=== PATIENT | male | born 1945 | race Caucasian/White ===

== ENCOUNTER → 2016-09-11 | Outpatient (CLI) | payer OTHER, MEDICARE | LOC: FIMAGING 13:46 | PROVIDERS: ATTEND Physician Assistant | DX: M48.06 Spinal stenosis, lumbar region (principal); M51.36 Other intervertebral disc degeneration, lumbar region; M51.86 Other intervertebral disc disorders, lumbar region; M51.87 Other intervertebral disc disorders, lumbosacral region; M46.96 Unspecified inflammatory spondylopathy, lumbar region ==

== ENCOUNTER 2016-11-20 06:37 | Inpatient (IN) | payer OTHER, MEDICARE ==
[~2016-11-20 06:37] MED LIST: CHLORHEXIDINE GLUC HIBICLENS 118 ML BTL TP ONE; LIDOCAINE 1% 2 ML INJ ONE; ceFAZolin 2 GM/DEXTROSE 100 ML IV ONE
[2016-11-20] MEDS ORDERED: LIDOCAINE 1% 5 ML SDV ID PRN (06:41)
[2016-11-20] MEDS ORDERED: LR 1,000 ML IV ONE (06:41)
[2016-11-20] MEDS ORDERED: THROMBIN (BOVINE) 5,000 UNIT VIAL TP ONE (07:50)
[2016-11-20] MEDS ORDERED: BUPIVACAINE/EPI 0.25% 30 ML SDV ONE (07:50)
[2016-11-20] MEDS ORDERED: BACITRACIN 50,000 UNITS/10 ML SYR IRR ONE ×2 (07:51→10:54)
[2016-11-20] MEDS ORDERED: POLYETHYLENE GLYCOL 3350 17 GM PKT PO PRN (07:53)
[2016-11-20] MEDS ORDERED: NALOXONE HCL 0.4 MG/ML INJ IVP PRN (07:53)
[2016-11-20] MEDS ORDERED: DIAZEPAM 10 MG/2 ML SYR IVP PRN (07:53)
[2016-11-20] MEDS ORDERED: diphenhydrAMINE 25 MG CAP PO PRN (07:53)
[2016-11-20] MEDS ORDERED: DIAZEPAM 5 MG TAB PO PRN (07:53)
[2016-11-20] MEDS ORDERED: BISACODYL 10 MG SUPP PR PRN (07:53)
[2016-11-20] MEDS ORDERED: LACTULOSE 20 GM/30 ML UDCUP PO PRN (07:53)
[2016-11-20] MEDS ORDERED: MAGNESIUM HYDROXIDE 30 ML UDCUP PO PRN (07:53)
[2016-11-20] MEDS ORDERED: ONDANSETRON DISINTEGRATING 4 MG TAB PO PRN (07:53)
[2016-11-20] MEDS ORDERED: HYDROmorphONE/DILAUDID 6 MG/30 ML PCA IV PRN (07:53)
[2016-11-20] MEDS ORDERED: ONDANSETRON 4 MG/2 ML VIAL IVP PRN (07:53)
[2016-11-20] MEDS ORDERED: PROPOFOL/EMULSION 500 MG/50 ML BOTTLE IV ONE ×7 (07:59→13:46)
[2016-11-20] MEDS ORDERED: REMIFENTANIL HCL 1 MG VIAL ONE ×7 (07:59→12:41)
[2016-11-20] MEDS ORDERED: DEXAMETHASONE 4 MG/ML VIAL ONE ×2 (08:02→08:03)
[2016-11-20] MEDS ORDERED: SUCCINYLCHOLINE CHLORIDE*ANESTHESIA ONLY*200 MG/10 ML SYR IVP ONE (08:02)
[2016-11-20] MEDS ORDERED: ONDANSETRON 4 MG/2 ML VIAL ONE (08:03)
[2016-11-20] MEDS ORDERED: RANITIDINE 50 MG/2 ML VIAL ONE (08:03)
[2016-11-20] MEDS ORDERED: MIDAZOLAM 2 MG/2 ML VIAL ONE (08:04)
[2016-11-20] MEDS ORDERED: HYDROmorphONE/DILAUDID 2 MG/ML INJ ONE (08:08)
[2016-11-20] MEDS ORDERED: epHEDrine SULFATE 10 MG/ML SYR ONE (08:26)
[2016-11-20] MEDS ORDERED: FAMOTIDINE 20 MG/NACL 50 ML IV SCH (09:00)
[2016-11-20] MEDS ORDERED: ceFAZolin 1 GM VIAL ONE (11:53)
[2016-11-20] MEDS ORDERED: fentaNYL 100 MCG/2 ML INJ ONE (14:55)
[2016-11-20] MEDS ORDERED: DIAZEPAM 10 MG/2 ML SYR ONE (15:22)
[2016-11-20] MEDS: LISINOPRIL 20 MG TAB PO SCH (15:40)
[2016-11-20] MEDS: morphINE SR 15 MG TAB PO SCH ×2 (15:41→21:29)
[2016-11-20] MEDS: SENNOSIDES/DOCUSATE SODIUM TAB PO SCH ×2 (15:43→21:30)
[2016-11-20] MEDS ORDERED: HYDROmorphONE/DILAUDID 1 MG/ML SYR ONE (16:06)
[2016-11-20] MEDS: HYDROmorphONE/DILAUDID 1 MG/ML SYR IVP PRN (17:16)
--- NOTE | 2016-11-20 17:17 | GOP ---
[f rep st] OPERATIVE REPORT DATE OF OPERATION: 11/20/2016 SURGEON: Barry Mathis MD SUBSCRIPTION CREW LEADER: Rajat Leblanc PA-C. PREOPERATIVE DIAGNOSIS: 1. Adjacent segment disease. 2. Epidural lipomatosis. 3. Severe spinal stenosis L2-3 and L3-4. 4. Prior lumbar fusion L4-5, L5-S1. 5. Right lumbosacral radiculopathy. POSTOPERATIVE DIAGNOSIS: 1. Adjacent segment disease. 2. Epidural lipomatosis. 3. Severe spinal stenosis L2-3 and L3-4. 4. Prior lumbar fusion L4-5, L5-S1. 5. Right lumbosacral radiculopathy. 6. 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 PROCEDURE PERFORMED: 1. Removal of posterior segmental instrumentation, L4, L5, S1 with exploration of spinal fusion at L5-S1, posterolateral and intervertebral arthrodesis at L2-3 and L3-4 ([id number], [id number]). 2. Posterior lateral arthrodesis only L4-5, L5-S1 ([id number] x2). 3. Same incision bone graft harvest. 4. Microscope. 5. Posterior segmental instrumentation, L2, L3, L4, L5, S1, and S2. 6. Spinal stereotaxy. 7. Placement of biomechanical intervertebral devices at L2-3, L3-4. FINDINGS: ESTIMATED BLOOD LOSS: 400 cc. INDICATIONS: The patient is a mature gentleman who had a prior history of L4-5, L5-S1 TLIF done on December 04, 2015 with good clinical result and significant resolution of his right lumbosacral radiculo genie. He developed some recurrent pain in the right leg, and some of it was consistent with a high er root involvement. MRI demonstrated progression of spinal stenosis at L2-3, 3-4. We knew indeed that he had previous stenosis at those 2 levels, but it had worsened over the interval, and it was m y feeling they were contributing to his new right leg pain. I suggested decompression and fusion at those levels. I also was concerned about the possibility of a pseudoarthrosis or problem at the L5 -S1, particularly in the right L5-S1 foramen, and I suggested exploration of this level. The risk o f continued symptoms, nerve injury, spinal fluid leak, screw and hardware malposition, malfunction, recurrent pseudoarthrosis, and recurrence adjacent segment disease was discussed. He understood the se risks. He wanted to proceed. DESCRIPTION OF PROCEDURE: Patient was taken to the operating room, placed in supine position. Gene ral anesthesia was begun. He was flipped prone on the Matt table. Care was taken to pad all poi nts of contact. He was sterilely prepped 4 times by the surgeon and then draped. Localizing x-rays were taken. We opened the previous midline incision, extended it rostrally and inferiorly somewhat with the scalpel blade. The plasma blade was used for dissection. No Bovie cautery was used. The subcutaneous tissue was dissected, and we performed a subperiosteal dissection down the inferior la rajani of L1, the laminae of L2, L3. The rostral lamina of L4 was exposed. The prior hardware at L4- 5, S1 was exposed. Care was taken to avoid the midline laminectomy defects, and we exposed all the hardware at L4-5 S1. We removed the cap screws and the crosslink. There was no problem with the cr osslink itself. It was removed. We removed both rods, and then began removing the screws. The L4 and L5 screws were well seated within bone. The S1 screws had experienced some osteolysis. They we re easily removed, but I was concerned about a pseudoarthrosis after appreciating this. We then dri lled posterolaterally at L4-5, and there was solid cortical bone bridging from L4 to L5. At L5-S1, there was a small gap in the cortical bone bridging between these 2 right below the L5 pedicle. Thi s was consistent with a pseudoarthrosis, and indeed, when one pulled on the sacrum, one could see tr donell amount of motion in that false joint. We, therefore, elected to increase our exposure, and we i ncreased the exposure at the sacrum for placement of S2 screws as necessary. We had extra-large ped icle screws for replacement of the S1 screws. We attached the Stealth reference frame to the L3 spi nous process, performed an O-arm spin, and inspected the O-arm spin. Indeed, our clinical suspicion was confirmed by this, there was solid bony union at L4-5, but there was pseudoarthrosis at L5-S1. Osteolysis was present around the prior screws. You could tell that the caliber of these pedicle t rajectories was larger than L4 and L5 screws. Using frameless Stealth stereotaxy, we placed pedicle screws bilaterally at S2. We actually chose to place new pedicle trajectories at S1. S1 pedicle w as generous, and there was a lot of cortical bone. We used a match stick to begin those holes on winnie th sides and used a pedicle finder to plot a new trajectory through the S1 pedicle. Both sides we w ent just rostral to the previous trajectory and somewhat medial. We chose 6.5 mm screws, and the sc rews were angled towards the endplate of the sacrum but not completely into the L5-S1 disk itself. We placed the same screws at L4 and L5. There was good bony purchase, and we placed bilateral screw s at L2 and L3. We performed an O-arm spin, and all the screws at L2, L3, L4, L5, S1, and S2 screws were in excellent position. We stimulated all the screws, and they all stimulated at acceptable le vels, but we got a 9 from the right S2 screw. We again inspected it. There was no evidence that it had breached the S2 pedicle. We backed it out, and because of this low stem number, this screw was removed from the patient, and we chose a 6.5 x 30 mm screw which was somewhat shorter. I thought th ere was a possibility the tip of the screw could be stimulating S1. It was removed, and we re-stimm ed, and this time it stimmed even lower at 7. We, therefore, removed the screw altogether. I did n ot think it was necessary given the excellent bony purchase at S1. These S1 screws were exceptional ly well seated within cortical bone, and they actually were some of the most reassuring screws that we put in I elected to forego the right S2 screw and left the left S2 screw in place. We cut a moon for the left hand side and used a prebent moon on the right. Both of them were titanium rods. We pu t the rods down over the tulips and bent the rods to fit nicely into the tulips. We then captured t he tulips with set screws. We distracted between L5 and S1 and got some elevation of the foramen an d the disk at that level. We also distracted L2-3, 3-4 and had nice elevation particularly at L3-4 with a terrible degenerative disk level. In the past on his previous surgery, we had appreciated a conjoined root on the right at L5-S1, and we did not radically re-exposed the right L5-S1 foramen, b ut we had opened with distraction. We did not want to consider a TLIF there because of the right-si ded conjoined root. I thought it would lead to nerve injury. We decorticated very thoroughly all t he posterolateral bone L2, L3, L4, L5, and the sacrum, and particular care was taken at L5 to expose the transverse process and decorticate the pedicle and mass AP of the sacrum. We had really a larg e bone to bone surface area for arthrodesis at that level. We locked down all the cap screws accord ing to company specification. We then turned our attention to cleaning up the bone. We removed all the soft tissue and decorticated the bone at L2-3, 3-4. I then harvested the L3 spinous process, t he rostral L4 spinous process, and the inferior L2 spinous process. We had a large amount of bony a utograft. We then drilled bilateral laminectomies at L2-3, L3-4 and harvested all this bone for aut ologous grafting purposes. We introduced the scope, and under the scope, we completely decompressed the central thecal sac at L3-4, L2-3. There was a huge amount of epidural fat present at both leve ls extending down in the neural foramen and lateral recesses, and we resected this fat. We had a ve ry nice decompression of the central spinal canal and bilateral recesses at L2-3, L3-4. On the righ t at L2-3, 3-4, we removed the facet joint complexes for access to the intervertebral space. At L2- 3 on the patient's right-hand side, there was a herniated disc underneath the L3 root at the L2-3 le mendel. This was removed. We then completely removed the L2-3 disk in its entirety and roughened the subchondral bone to create arthrodesis at that level. We did likewise at L3-4 from the right-sided approach. We removed the disk and the cartilaginous endplates. We roughened the subchondral bone t o create arthrodesis. The exiting L2 and exiting L3 nerve roots at each of those foramen was well i dentified. These were decompressed in the neural foramen. The neural foramen was also very stenoti c for those exiting nerves, and we got a great decompression for those as well. We then placed bone morphogenic protein into the disk space at L2-3 and L3-4 putting a total of 1 mg in at each level. We sized for placement of our intervertebral device. We chose a 7 x 28 mm devices at each level. We placed a large amount of bony autograft in both disk spaces and inserted the devices under fluoro scopic guidance, checked their position, and expanded them according to company specification. A fi nal x-ray was taken. They were in excellent position. We again re-decorticated all the posterior l ateral bone at L2-3, L3-4 L4-5, L5-S1 for our posterolateral arthrodesis from L2 all the way to S1. We placed bony autograft posterolaterally bilaterally. And a large amount of BMP was placed bilater ally at L5-S1 and bone autograft. We used 1/2 of a BMP sponge on each side at L5-S1 both medial and lateral to the screws. We had carefully inspected and decorticated bone on either side of the smal l pseudoarthrosis fracture site. We placed bone autograft completely over this area. We then place d bony autograft all the way up to L2. We used much less BMP at these levels where the laminectomie s were performed. We used our typical 1/4 of 1 sponge at those levels, and it was all placed sequencing machine operator olaterally away from the nerve roots. A subfascial drain was then placed. No cross-link was utiliz ed. The patient did not want to crosslink. We tunneled the subfascial drain and then closed the in cision using multiple layers, and then Steri-Strips were applied to the skin. The patient was rever sed from anesthesia, extubated, and transferred to recovery room in stable condition. There were no complications. SECONDARY SUBSCRIPTION CREW LEADER: Yoselyn Osborn NP. COMPLICATIONS: None. INSTRUMENTATION USED: [employer] pedicle screw instrumentation. We used a 5.5 mm system with a 5.5 mm titanium moon. We used 6 mg of bone morphogenic protein. /[id number]/MODL
[2016-11-20] MEDS: NS W/ 20 KCl/L 1,000 ML IV SCH (17:23)
[2016-11-20] MEDS: METHOCARBAMOL 750 MG TAB PO PRN (19:10)
[2016-11-20] MEDS: HYDROmorphONE/DILAUDID 2 MG TAB PO PRN ×2 (19:11→23:52)
--- NOTE | 2016-11-20 19:13 | SOAPPROG ---
SOAP Progress Note Assessment/Plan: Post Op Visit: S: Awake and alert. Pt with expected lower back pain. O: AFVSS/PERRLA/EOMI no droop CN 2-12 grossly intact +lt touch 5/5 BUE/BLE = CDI LULU in place A/P: 71 yo male that is s/p TLIF L2/3, L3/4 with L5/S1 reexploration and PSF L2- S1 -orders in place -pt seen by Dr Mathis as we -call with any questions or concerns -pt understands and agrees 11/20/16 19:10 Objective: Vital Signs Temp Pulse Resp BP Pulse Ox 36.7 C 101 H 16 119/84 H 96 11/20/16 18:43 11/20/16 18:43 11/20/16 18:43 11/20/16 18:43 11/20/16 18:43 11/19/16 11/20/16 11/21/16 05:59 05:59 05:59 Intake Total 2820 Output Total 800 Balance 2019 ICD10 Worksheet Patient Problems: Problems Problem Status Onset Arthrodesis status Acute Lumbar radicular pain Acute Lumbar stenosis Acute - ICD10 Problem Qualifiers (1) Lumbar stenosis (2) Lumbar radicular pain (3) Arthrodesis status
[2016-11-20] MEDS: FAMOTIDINE 20 MG TAB PO SCH (21:27)
[2016-11-20] MEDS: ZOLPIDEM TARTRATE 5 MG TAB PO SCH (21:30)
[2016-11-21] MEDS: METHOCARBAMOL 750 MG TAB PO PRN ×3 (04:34→19:36)
[2016-11-21] MEDS: HYDROmorphONE/DILAUDID 2 MG TAB PO PRN ×2 (04:34→12:57)
[2016-11-21 05:43] LABS: ANION GAP 7 mEq/L (8-16); CALCIUM 8.2 mg/dL (8.5-10.4); CARBON DIOXIDE 22 mEq/l (22-31); CHLORIDE 106 mEq/L (97-110); GLOMERULAR FILTRATION RATE > 60; GLUCOSE 126 mg/dL (70-100); POTASSIUM 4.6 mEq/L (3.5-5.2); SODIUM 135 mEq/L (134-144)
[2016-11-21 05:45] LABS: % IMMATURE GRANULYOCYTES 0.6 % (0.0-1.1); ABSOLUTE IMMATURE GRANULOCYTES 0.05 10^3/uL (0.00-0.10); ADD DIFF? NO; ADD MORPH? NO; ADD SCAN? NO; ATYPICAL LYMPHOCYTE FLAG 0 (0-99); FRAGMENT RBC FLAG 0 (0-99); HEMOGLOBIN 11.3 g/dL (13.7-17.5); LEFT SHIFT FLG 0 (0-99); LIPEMIA HEMOLYSIS FLAG 90 (0-99); MEAN CELL HEMOGLOBIN 33.6 pg (27.9-34.1); MEAN CELL HEMOGLOBIN CONCENTR. 34.2 g/dL (32.4-36.7); MEAN CELL VOLUME 98.2 fL (81.5-99.8); MEAN PLATELET VOLUME 10.3 fL (8.7-11.7); PLATELET CLUMPS FLAG 10 (0-99); PLATELET COUNT 129 10^3/uL (150-400); RED BLOOD CELL COUNT 3.36 10^6/uL (4.40-6.38)
[2016-11-21] MEDS: LISINOPRIL 20 MG TAB PO SCH (09:04)
--- NOTE | 2016-11-21 09:21 | NEUSURGPN ---
Date of Surgery: 11/20/16 Post Op Day: 1 Assessment/Plan: 71 yo male that is s/p TLIF L2/3, L3/4 with L5/S1 reexploration and PSF L2-S1 Continue with PT/OT Continue to wear brace Post op xrays pending LULU in place TEDS/SCD's Lovenox POD#3 Call NS with any questions or concerns Subjective: Patient feel he is doing well following surgery. Pain is managed with ordered medications. Objective: Awake and alert sitting up in chair. Pt with expected lower back pain. +lt touch 5/5 BUE/BLE = CDI LULU in place Neuro Check Frequency: per routine Urinary Catheter in Place: No Catheter Insertion Date: 11/20/16 - Physician Discussed Patient with .: Del Patient Seen by : Del Neurosurgery Physical Exam - Vitals, I&O, Labs I and O 11/20/16 11/21/16 11/22/16 05:59 05:59 05:59 Intake Total 3220 Output Total 1910 Balance 1310 Weight 95.254 kg Intake: Oral (ml) 620 IV Intake (ml) 2400 IV Infused (ml) 200 NS W/ 20 KCl/L 1,000 ml @ 200 75 mls/hr IV CONT OTTO Rx #:[id number] Output: Urine (ml) 950 Catheter 950 Estimated Blood Loss (ml) 400 LULU Drain Output (ml) 560 Posterior Back Matt 560 Leigh Other: Intake Quantity No Sufficient Vital Signs Temp Pulse Resp BP Pulse Ox 36.8 C 108 H 20 87/50 L 94 11/21/16 07:17 11/21/16 07:17 11/21/16 07:17 11/21/16 09:04 11/21/16 07:17 Laboratory Results 11/21/16 05:12 11/21/16 05:12 ICD10 Worksheet Patient Problems: Problems Problem Status Onset Arthrodesis status Acute Lumbar radicular pain Acute Lumbar stenosis Acute
[2016-11-21] MEDS ORDERED: NS 500 ML IV ONE (09:43)
[2016-11-21] MEDS: NS W/ 20 KCl/L 1,000 ML IV SCH (09:43)
[2016-11-21] MEDS: FAMOTIDINE 20 MG TAB PO SCH ×2 (09:46→19:36)
[2016-11-21] MEDS: SENNOSIDES/DOCUSATE SODIUM TAB PO SCH ×2 (09:46→19:35)
[2016-11-21] MEDS: morphINE SR 15 MG TAB PO SCH ×2 (09:46→19:36)
[2016-11-21] MEDS: HYDROmorphONE/DILAUDID 1 MG/ML SYR IVP PRN (16:06)
[2016-11-21] MEDS: ZOLPIDEM TARTRATE 5 MG TAB PO SCH (21:15)
[2016-11-22] MEDS: HYDROmorphONE/DILAUDID 2 MG TAB PO PRN ×3 (01:42→17:57)
[2016-11-22] MEDS: HYDROmorphONE/DILAUDID 1 MG/ML SYR IVP PRN (06:00)
[2016-11-22] MEDS: METHOCARBAMOL 750 MG TAB PO PRN ×4 (06:01→17:57)
[2016-11-22] MEDS: morphINE SR 15 MG TAB PO SCH ×2 (08:33→20:37)
[2016-11-22] MEDS: SENNOSIDES/DOCUSATE SODIUM TAB PO SCH ×2 (08:33→20:37)
[2016-11-22] MEDS: FAMOTIDINE 20 MG TAB PO SCH ×2 (08:33→20:37)
[2016-11-22] MEDS: ACETAMINOPHEN 325 MG TAB PO PRN ×2 (08:35→17:56)
[2016-11-22] MEDS: LISINOPRIL 20 MG TAB PO SCH (08:39)
--- NOTE | 2016-11-22 09:33 | NEUSURGPN ---
Date of Surgery: 11/20/16 Post Op Day: 2 Assessment/Plan: 71 yo male that is s/p TLIF L2/3, L3/4 with L5/S1 reexploration and PSF L2-S1 Continue with PT/OT Continue to wear brace Post op xrays stable LULU discontinued TEDS/SCD's Lovenox POD#3 Possibly go home either 11/23 or 11/24 if doing well. Scripts written and RN will give to today to fill. Call NS with any questions or concerns Subjective: Patient sitting up in chair doing well. He had some left knee pain last night which he contributed to his knee replacement. Concerned about facial sores and states wound care will see him. Expected back pain present, presurgical leg pain improved as well as improvement with numbness in right great toe. Would like to go home sometime this weekend. Objective: Awake and alert sitting up in chair. Pt with expected lower back pain. Some facial breakdown from surgical positioning. +lt touch 5/5 BUE/BLE = LULU Discontinued, tip intact Dressing changed by RN, CDI Neuro Check Frequency: per routine Urinary Catheter in Place: No Catheter Insertion Date: 11/20/16 - Physician Discussed Patient with : Del Neurosurgery Physical Exam - Vitals, I&O, Labs I and O 11/21/16 11/22/16 11/23/16 05:59 05:59 05:59 Intake Total 3220 550 Output Total 1910 1455 150 Balance 1310 -905 -150 Weight 95.254 kg Intake: Oral (ml) 620 250 IV Intake (ml) 2400 IV Infused (ml) 200 300 NS W/ 20 KCl/L 1,000 ml @ 200 300 75 mls/hr IV CONT OTTO Rx #:[id number] Output: Urine (ml) 950 1130 150 Catheter 950 Urinal 1130 150 Estimated Blood Loss (ml) 400 LULU Drain Output (ml) 560 325 Posterior Back Matt 560 325 Leigh Other: Intake Quantity No Sufficient Number of Voids Urinal 2 Vital Signs Temp Pulse Resp BP Pulse Ox 36.7 C 79 18 112/86 H 92 11/22/16 04:00 11/22/16 04:00 11/22/16 04:00 11/22/16 04:00 11/22/16 04:00 Laboratory Results 11/21/16 05:12 11/21/16 05:12 ICD10 Worksheet Patient Problems: Problems Problem Status Onset Arthrodesis status Acute Lumbar radicular pain Acute Lumbar stenosis Acute
--- NOTE | 2016-11-22 16:10 | WOCRNPDOC ---
WOCRN Advanced Assessment Note - Skin Integrity Problem, Advanced Assess Forehead Dressing Type: Open to Air Exudate Amount: None Maribel Wound Tissue: Intact Wound Edges: Epithelizing Site Odor: None Skin Integrity Problem Comment: Cleansed with sterile NS and gauze; applied skin prep. Bilateral Cheek Dressing Type: Open to Air Exudate Amount: Scant Exudate Color: Clear, Yellow Exudate Characteristic(s): Serous Integumentary Issue Intervention: Dressing Applied (Medihoney HCS and Replicare hydrocolloid) Maribel Wound Tissue: Erythema, Swollen Maribel Wound Swelling: Mild Wound Bed Color: Yellow Wound Bed Constitution: Adhered Slough (100% of bases: thick covering at right, minimal thickness at left cheek) Wound Edges: Well Defined Site Odor: None Site Measurement - Head-to-Toe Length X Width X Depth (cm): 1.5 x 2.5 x 0 ( slough) Pressure Injury Stage: Unstageable, Discharge Planner Related Pressure Injury Pressure Injury Present on Admit: No (presumed to have occurred during or after surgery.) Skin Integrity Problem Comment: Symmetrical injuries at bilateral cheeks and forehead. Open at bilateral cheeks, with slough occluding bases. Cleansed using sterile NS and gauze. Applied Cavilon skin prep to intact periwound, Medihoney to slough, and secured/protected from chafing of O2 tubing with Hydrocolloid dressings to promote autolytic debridement. Discussed instructions with patient and with SHARON Cruz to change cover dressings to bandaids in the event that hydrocolloids fail to adhere, given the presence of facial contours and skin oils. customer sales distributor to see next on Sunday 11/26.
[2016-11-22] MEDS: ZOLPIDEM TARTRATE 5 MG TAB PO SCH (20:37)
[2016-11-23] MEDS: METHOCARBAMOL 750 MG TAB PO PRN ×3 (02:07→12:58)
[2016-11-23] MEDS: HYDROmorphONE/DILAUDID 2 MG TAB PO PRN ×3 (02:11→12:56)
[2016-11-23 04:54] VITALS: PULSE 84
[2016-11-23 08:24] VITALS: BP 115/70; RESP 16; TEMP 98.1; O2SAT 90
[2016-11-23] MEDS: FAMOTIDINE 20 MG TAB PO SCH (08:52)
[2016-11-23] MEDS: morphINE SR 15 MG TAB PO SCH (08:52)
[2016-11-23] MEDS: ACETAMINOPHEN 325 MG TAB PO PRN ×2 (08:53→12:58)
[2016-11-23] MEDS: SENNOSIDES/DOCUSATE SODIUM TAB PO SCH (08:54)
[2016-11-23] MEDS: LISINOPRIL 20 MG TAB PO SCH (08:55)
[2016-11-23] MEDS ORDERED: ENOXAPARIN 40 MG/0.4 ML SYR SC SCH (09:00)
--- NOTE | 2016-11-23 13:59 | SOAPPROG ---
PARISA Progress Note Assessment/Plan: Assessment: Doing well sp L2 to S2 fusion and revision Some left anterior thigh and groin pain Wants to go home We plan to discharge him home. Plan: 11/23/16 13:58 Subjective: Doing relatively well. Ambulating with a walker. Some left anterior thigh and groin pain. Objective: Vital Signs Temp Pulse Resp BP Pulse Ox 36.7 C 84 16 115/70 90 L 11/23/16 08:00 11/23/16 08:00 11/23/16 08:00 11/23/16 08:00 11/23/16 08:00 Laboratory Results 11/21/16 05:12 11/21/16 05:12 11/22/16 11/23/16 11/24/16 05:59 05:59 05:59 Intake Total 550 500 Output Total 1456 1025 Balance -905 -525 maew ICD10 Worksheet Patient Problems: Problems Problem Status Onset Arthrodesis status Acute Lumbar radicular pain Acute Lumbar stenosis Acute
== END 2016-11-23 16:23 | disposition home or self-care (01) | DRG 460 ==
LOC: F3N 06:37
PROVIDERS: ADMIT Neurological Surgery; ATTEND Neurological Surgery
DX: M48.06 Spinal stenosis, lumbar region (principal); M96.0 Pseudarthrosis after fusion or arthrodesis; M51.36 Other intervertebral disc degeneration, lumbar region; M54.16 Radiculopathy, lumbar region; I10 Essential (primary) hypertension; G47.33 Obstructive sleep apnea (adult) (pediatric); K21.9 Gastro-esophageal reflux disease without esophagitis; E88.2 Lipomatosis, not elsewhere classified
CPT/HCPCS: 97116-GP; 97161-GP; 97165-GO; 97535-GO; C1713; G8978-GP-CJ; G8979-GP-CI; G8980-GP-CI; G8987-GO-CI; G8988-GO-CI; G8989-GO-CI; J0330; J0690; J1100; J1170; J1650; J2250; J2405; J2704; J2780; J3010

== ENCOUNTER 2016-11-28 18:45 | Emergency (ER) | payer OTHER, MEDICARE ==
[2016-11-28 18:59] VITALS: TEMP 98.8
--- NOTE | 2016-11-28 19:18 | EDPHY ---
HPI/HX/ROS/PE/MDM Narrative: CHIEF COMPLAINT: Fever HPI: The patient is a 71-year-old male who underwent a lumbar fusion surgery [address] Mathis. He has been doing well until today when, approximately 2-3 hours ago, he noted he felt hot and had a fever to 101.5 degrees. Patient states he was using a heated neck pill at that time. He denies cough, abdominal pain, dysuria. He does report urinary frequency. He states he has back pain since the surgery but this has been gradually getting better. REVIEW OF SYSTEMS: Aside from elements discussed in the HPI, a comprehensive 10-point review of systems was reviewed and is negative. PMH: Recent lumbar fusion surgery. SOCIAL HISTORY: . Retired. PHYSICAL EXAM: General:Patient is alert, in no acute distress. ENT:Eyes are normal to inspection. ENT inspection normal. Neck: Normal inspection. Full range of motion. Respiratory:No respiratory distress. Breath sounds normal bilaterally. Cardiovascular: Regular rate and rhythm. Strong peripheral pulses. Normal cap refill. Abdomen:The abdomen is nontender to palpation. There are no peritoneal signs. There are normal bowel sounds. Back: Back brace in place. No discharge from wound. Skin: Normal color. No rash. Warm and dry. Extremities: Normal appearance. Full range of motion. Hood hose in place. Neuro: Oriented x3. Normal motor function. Normal sensory function. ED Course: I discussed the case with Rajat Leblanc from Neurosurgery at 8:30 eight thirty p.m.. He is comfortable with the patient going home without further imaging. They will follow as an outpatient. MDM: This patient presents with isolated fever without source in a post-op patient. The patient is very well-appearing. There is no evidence of PNA, UTI, abdominal emergency, cellulitis. I do not think the patient requires empiric antibiotics. He is comfortable with the plan to be discharged home. We discussed strict return precautions. - Data Points Imaging Results: Imaging Impressions Chest X-Ray 11/28/16 19:16 Impression: 1. Bronchitis. 2. No definite pneumonia. Laboratory Results: Laboratory Results 11/28/16 19:23 11/28/16 19:23 11/28/16 11/28/16 11/28/16 20:30 19:35 19:23 WBC RBC Hgb Hct MCV MCH MCHC RDW Plt Count MPV Neut % (Auto) Lymph % (Auto) Will % (Auto) Eos % (Auto) Baso % (Auto) Nucleat RBC Rel Count Absolute Neuts (auto) Absolute Lymphs (auto) Absolute Monos (auto) Absolute Eos (auto) Absolute Basos (auto) Absolute Nucleated RBC Immature Gran % Immature Gran # ESR VBG Lactic Acid 1.1 mmol/L mmol/L (0.7-2.1) Sodium 129 mEq/L L mEq/L (134-144) Potassium 4.3 mEq/L mEq/L (3.5-5.2) Chloride 99 mEq/L mEq/L (97-110) Carbon Dioxide 23 mEq/l mEq/l (22-31) Anion Gap 7 mEq/L L mEq/L (8-16) BUN 16 mg/dL mg/dL (7-23) Creatinine 0.9 mg/dL mg/dL (0.7-1.3) Estimated GFR > 60 Glucose 108 mg/dL H mg/dL (70-100) Calcium 9.6 mg/dL mg/dL (8.5-10.4) Urine Color Pending Urine Appearance Pending Urine pH Pending Ur Specific Orestes Pending Urine Protein Pending Urine Ketones Pending Urine Blood Pending Urine Nitrate Pending Urine Bilirubin Pending Urine Urobilinogen Pending Ur Leukocyte Esterase Pending Urine Glucose Pending 11/28/16 19:23 WBC 7.56 10^3/uL 10^3/uL (3.80-9.50) RBC 3.05 10^6/uL L 10^6/uL (4.40-6.38) Hgb 10.2 g/dL L g/dL (13.7-17.5) Hct 29.6 % L % (40.0-51.0) MCV 97.0 fL fL (81.5-99.8) MCH 33.4 pg pg (27.9-34.1) MCHC 34.5 g/dL g/dL (32.4-36.7) RDW 13.2 % % (11.5-15.2) Plt Count 215 10^3/uL 10^3/uL (150-400) MPV 9.2 fL fL (8.7-11.7) Neut % (Auto) 81.9 % H % (39.3-74.2) Lymph % (Auto) 9.9 % L % (15.0-45.0) Will % (Auto) 5.3 % % (4.5-13.0) Eos % (Auto) 2.0 % % (0.6-7.6) Baso % (Auto) 0.4 % % (0.3-1.7) Nucleat RBC Rel Count 0.0 % % (0.0-0.2) Absolute Neuts (auto) 6.19 10^3/uL 10^3/uL (1.70-6.50) Absolute Lymphs (auto) 0.75 10^3/uL L 10^3/uL (1.00-3.00) Absolute Monos (auto) 0.40 10^3/uL 10^3/uL (0.30-0.80) Absolute Eos (auto) 0.15 10^3/uL 10^3/uL (0.03-0.40) Absolute Basos (auto) 0.03 10^3/uL 10^3/uL (0.02-0.10) Absolute Nucleated RBC 0.00 10^3/uL 10^3/uL (0-0.01) Immature Gran % 0.5 % % (0.0-1.1) Immature Gran # 0.04 10^3/uL 10^3/uL (0.00-0.10) ESR 29 MM/HR H MM/HR (0-20) VBG Lactic Acid Sodium Potassium Chloride Carbon Dioxide Anion Gap BUN Creatinine Estimated GFR Glucose Calcium Urine Color Urine Appearance Urine pH Ur Specific Orestes Urine Protein Urine Ketones Urine Blood Urine Nitrate Urine Bilirubin Urine Urobilinogen Ur Leukocyte Esterase Urine Glucose General Time Seen by Provider: 11/28/16 19:15 Initial Vital Signs: Initial Vital Signs Temperature (C) 37.1 C 11/28/16 18:50 Heart Rate 102 H 11/28/16 18:50 Respiratory Rate 18 11/28/16 18:50 Blood Pressure 137/79 H 11/28/16 18:50 O2 Sat (%) 93 11/28/16 18:50 O2 Delivery Mode Room Air Allergies/Adverse Reactions: No Known Allergies Allergy (Verified 11/28/16 18:59) Home Medications: Medication Instructions Recorded Herbals/Supplements -Info Only 1 ea PO DAILY 05/30/14 Cholecalciferol Vit D3 [Vitamin D3 1,000 units PO DAILY 11/05/16 (*)] Lisinopril [Zestril 20 mg (*)] 20 mg PO DAILY 11/05/16 Zolpidem Tartrate [Ambien 5MG (*)] 10 mg PO HS 11/05/16 Acetaminophen [Tylenol 325mg (*)] 325 - 650 mg PO Q4HRS PRN #0 tab 11/22/16 HYDROmorphone HCL [Dilaudid 2 mg 2 - 4 mg PO Q4HRS PRN #60 tab 11/22/16 (*)] Methocarbamol [Robaxin 750 mg (*)] 750 mg PO QID PRN #60 tab 11/22/16 Sennosides/Docusate Sodium 1 - 2 tab PO BID #0 tab 11/22/16 [Senokot-S] morphINE SR [Ms Contin/Oramorph 15 15 mg PO BID #60 tab 11/22/16 mg (*)] Departure - Departure Disposition: Home, Routine, Self-Care Clinical Impression: Fever Condition: Good Instructions: Fever in Adults (ED) Additional Instructions: Use ibuprofen and Tylenol as needed for fever and body aches. Follow up with your primary care physician within 72 hours for reevaluation. Drink plenty of fluids. Return to the emergency department immediately for high fever, severe headache or neck pain, difficulty breathing, abdominal pain, rash or other worsening of condition. Referrals: Hussain Morales DO [Primary Care Provider] - As per Instructions
[2016-11-28 19:55] LABS: % IMMATURE GRANULYOCYTES 0.5 % (0.0-1.1); ABSOLUTE IMMATURE GRANULOCYTES 0.04 10^3/uL (0.00-0.10); ADD DIFF? NO; ADD MORPH? NO; ADD SCAN? NO; ATYPICAL LYMPHOCYTE FLAG 0 (0-99); FRAGMENT RBC FLAG 0 (0-99); HEMATOCRIT 29.6 % (40.0-51.0); HEMOGLOBIN 10.2 g/dL (13.7-17.5); LEFT SHIFT FLG 10 (0-99); LIPEMIA HEMOLYSIS FLAG 90 (0-99); MEAN CELL HEMOGLOBIN 33.4 pg (27.9-34.1); MEAN CELL HEMOGLOBIN CONCENTR. 34.5 g/dL (32.4-36.7); MEAN PLATELET VOLUME 9.2 fL (8.7-11.7); PLATELET CLUMPS FLAG 0 (0-99); PLATELET COUNT 215 10^3/uL (150-400); RED BLOOD CELL COUNT 3.05 10^6/uL (4.40-6.38); RED CELL DISTRIBUTION WIDTH 13.2 % (11.5-15.2)
[2016-11-28 20:19] LABS: ANION GAP 7 mEq/L (8-16); CALCIUM 9.6 mg/dL (8.5-10.4); CARBON DIOXIDE 23 mEq/l (22-31); CHLORIDE 99 mEq/L (97-110); CREATININE 0.9 mg/dL (0.7-1.3); GLOMERULAR FILTRATION RATE > 60; GLUCOSE 108 mg/dL (70-100); POTASSIUM 4.3 mEq/L (3.5-5.2); SEDIMENTATION RATE 29 MM/HR (0-20); SODIUM 129 mEq/L (134-144)
[2016-11-28 21:03] LABS: COLOR YELLOW; LEUKOCYTE ESTERASE,URINE NEGATIVE (NEGATIVE); NITRITE,URINE NEGATIVE (NEGATIVE)
[2016-11-28 21:19] VITALS: BP 138/79; PULSE 88; RESP 16; O2SAT 96
[2016-11-28] MEDS ORDERED: NS 1,000 ML IV ONE (21:20)
== END 2016-11-28 21:18 | disposition home or self-care (01) ==
DX: R50.9 Fever, unspecified (principal); R42 Dizziness and giddiness; Z98.1 Arthrodesis status

== ENCOUNTER → 2017-01-13 | Outpatient (CLI) | payer OTHER, MEDICARE | LOC: CIMAGING 12:54 | PROVIDERS: ATTEND Nurse Practitioner | DX: Z09 Encounter for follow-up examination after completed treatment for conditions other than malignant neoplasm (principal); Z98.1 Arthrodesis status | CPT/HCPCS: 72100-PO ==

== ENCOUNTER → 2017-03-14 | Outpatient (CLI) | payer OTHER, MEDICARE | LOC: CIMAGING 10:37 | PROVIDERS: ATTEND Family Medicine | DX: J40 Bronchitis, not specified as acute or chronic (principal) | CPT/HCPCS: 71020-PO ==

== ENCOUNTER → 2017-04-07 | Outpatient (CLI) | payer OTHER, MEDICARE | LOC: CIMAGING 14:18 | PROVIDERS: ATTEND Neurological Surgery | DX: Z09 Encounter for follow-up examination after completed treatment for conditions other than malignant neoplasm (principal); Z98.1 Arthrodesis status | CPT/HCPCS: 72100-PO ==

== ENCOUNTER → 2017-08-12 | Outpatient (CLI) | payer OTHER, MEDICARE | LOC: CIMAGING 09:32 | PROVIDERS: ATTEND Physician Assistant | DX: R09.02 Hypoxemia (principal); M54.5 Low back pain; Z98.1 Arthrodesis status | CPT/HCPCS: 71046-PO; 72080-PO ==

== ENCOUNTER → 2017-08-25 | Outpatient (CLI) | payer OTHER, MEDICARE | LOC: SBRMNEURO 21:00 | PROVIDERS: ATTEND Internal Medicine Sleep Medicine | DX: G47.33 Obstructive sleep apnea (adult) (pediatric) (principal); G47.61 Periodic limb movement disorder ==

== ENCOUNTER 2017-12-19 10:36 | Emergency (ER) | payer OTHER, MEDICARE ==
--- NOTE | 2017-12-19 10:55 | EDPHY ---
H & P Time Seen by Provider: 12/19/17 10:53 HPI/ROS: Chief complaint. Back pain HPI. 72-year-old male presents emergency department with 4 day history low back pain. 4 days ago he had his foot up on the Jacuzzi cutting his toenails and felt a shooting pain on the left side of his low back. He has continued to have some discomfort and has had increasing spasms in his low back today especially on the left. However he has no leg weakness, sciatica symptoms or bowel or bladder symptoms. He has a history of 2 previous back effusions. He has had similar symptoms previously successfully treated with Robaxin. No chest discomfort or trouble breathing or abdominal pain. ROS Constitutional. no fever/chills, no weakness Eyes. no problems with vision ENT. no sore throat, no nasal drainage Cardiovascular. no chest pain Respiratory. no shortness of breath, no cough Abdominal. no abdominal pain, no nausea/vomiting, no diarrhea . no problems urinating MS. Low back pain and spasm Skin. no rash Lymph. no swollen glands Neuro. no headache, no dizziness, no difficulty walking or with speech Past Medical/Surgical History: Past medical history significant for hypertension, knee replacement, back surgery, GERD, dyslipidemia Social History: , nonsmoker, no alcohol Smoking Status: Never smoked Physical Exam: General Appearance: Alert pleasant well-developed male mild distress vital signs are stable Eyes: Pupils equal and round no pallor or injection. ENT, Mouth: Mucous membranes are moist. Respiratory: There are no retractions, lungs are clear to auscultation. Cardiovascular: Regular rate and rhythm. Gastrointestinal: Abdomen is soft and nontender, no masses, bowel sounds normal. Neurological: Awake and alert, sensory and motor exams grossly normal. Straight leg raising negative bilaterally to 30 degrees. Deep tendon reflexes are symmetrical. Great toe strength is normal Skin: Warm and dry, no rashes. Musculoskeletal: Neck is supple nontender. No TLS tenderness. Diffuse lumbar area tenderness but not over the spine Extremities symmetrical, full range of motion. Psychiatric: Patient is oriented X 3, there is no agitation. Constitutional: Initial Vital Signs Temperature (C) 36.5 C 12/19/17 10:45 Heart Rate 67 12/19/17 10:45 Respiratory Rate 16 12/19/17 10:45 Blood Pressure 155/96 H 12/19/17 10:45 O2 Sat (%) 94 12/19/17 10:45 O2 Delivery Mode Room Air Allergies/Adverse Reactions: No Known Allergies Allergy (Verified 11/28/16 18:59) Home Medications: Medication Instructions Recorded Herbals/Supplements -Info Only 1 ea PO DAILY 05/30/14 Lisinopril [Zestril 20 mg (*)] 20 mg PO DAILY 11/05/16 Zolpidem Tartrate [Ambien 5MG (*)] 10 mg PO HS 11/05/16 Aleve 12/19/17 Methocarbamol [Robaxin 750 mg (*)] 750 mg PO QID PRN #20 tab 12/19/17 Medical Decision Making - Diagnostics Imaging Results: Imaging Impressions Lumbar Spine X-Ray 12/19/17 11:03 Impression: 1. Minimal lucency around the left pedicle screw at L2 could represent early loosening. This is a minimal finding, however. 2. Stable alignment of fusion from L2 through S2 as detailed above. 3. Stable degenerative disk disease upper lumbar spine to lower thoracic spine. Lumbar spine x-ray reviewed by me shows possible early loosening of L2 pedicle screw. Otherwise hardware is intact without acute findings ED Course/Re-evaluation: Re-evaluation at 11:36 a.m.. Patient, his , and I discussed imaging study results, treatment plan including criteria for return and importance of follow- up and further evaluation. They expressed understanding and agreement Differential Diagnosis: I considered hardware malfunction and broken hardware. This is likely muscular etiology of back pain. No clinical findings for cauda equina syndrome Departure - Departure Disposition: Home, Routine, Self-Care Clinical Impression: Back pain Qualifiers: Back pain location: low back pain Chronicity: acute Back pain laterality: left Sciatica presence: without sciatica Qualified Code(s): M54.5 - Low back pain Condition: Good Instructions: Low Back Strain (ED) Additional Instructions: Continue Aleve as is prescribed. Robaxin in addition to help with muscle spasm. Radiologist read you're x-ray as possible early loosening of the L2 pedicle screw however otherwise hardware is stable. Follow up with Dr. Mathis for this. Return for bowel or bladder symptoms or leg weakness. Re-evaluation in 3-4 days for continuing symptoms Referrals: Hussain Morales, [Primary Care Provider] - 3-4 days, if not improved Staci Mathis MD [Medical Doctor] - As per Instructions Prescriptions: Methocarbamol [Robaxin 750 mg (*)] 750 mg PO QID PRN #20 tab PRN Reason: Spasms
[2017-12-19 12:02] VITALS: BP 151/106
== END 2017-12-19 11:50 | disposition home or self-care (01) ==
LOC: CED 10:36
DX: M54.5 Low back pain (principal); I10 Essential (primary) hypertension
CPT/HCPCS: 72100-PO

== ENCOUNTER → 2018-04-02 | Outpatient (CLI) | payer OTHER, MEDICARE | LOC: CIMAGING 11:39 | PROVIDERS: ATTEND Physician Assistant | DX: Z47.89 Encounter for other orthopedic aftercare (principal); Z98.1 Arthrodesis status | CPT/HCPCS: 72080-PO ==

== ENCOUNTER → 2018-07-08 | Outpatient (CLI) | payer OTHER, MEDICARE | LOC: SBRMNEURO 20:00 | PROVIDERS: ATTEND Internal Medicine Sleep Medicine | DX: G47.33 Obstructive sleep apnea (adult) (pediatric) (principal); G47.61 Periodic limb movement disorder ==

== ENCOUNTER → 2018-11-05 | Outpatient (CLI) | payer OTHER, MEDICARE | LOC: FIMAGING 11:37 | PROVIDERS: ATTEND Physician Assistant | DX: M51.36 Other intervertebral disc degeneration, lumbar region (principal); M48.07 Spinal stenosis, lumbosacral region; M43.26 Fusion of spine, lumbar region; M51.17 Intervertebral disc disorders with radiculopathy, lumbosacral region ==

== ENCOUNTER → 2018-11-19 | Outpatient (CLI) | payer OTHER, MEDICARE | LOC: CIMAGING 12:16 ==

== ENCOUNTER → 2018-12-03 | Outpatient (CLI) | payer OTHER, MEDICARE | LOC: CIMAGING 12:31 ==